=== PATIENT | male | born 1985 | race Caucasian/White ===

== ENCOUNTER → 2016-10-21 07:51 | Day surgery (SDC) | payer BC ==
[~2016-10-21 07:51] MED LIST: Acetaminophen TAB* 325 MG ONE; Buffered Lidocaine 1% SYR 3ML* 3 ML/SYR SYRINGE INTRADERM ONE; Buffered Lidocaine 1% SYR 3ML* 3 ML/SYR SYRINGE ONE; Bupivacaine 0.25% SDV* 30 ML ONE; Dexamethasone IV* 4 MG/ML 1 ML (4 MG) IV SLOW PU ONE; Dexamethasone IV* 4 MG/ML 1 ML (4 MG) ONE; Famotidine IV* 10 MG/ML 2 ML (20 mg) IV ONE; Famotidine IV* 10 MG/ML 2 ML (20 mg) ONE; KETAMINE HCL* 50 MG/ML 10 ML VIAL ONE; Ketorolac INJ* 30 MG/ML 1 ML VIAL ONE; Lidocaine 2% PF * 5 ML VIAL ONE; Midazolam* 1 MG/ML 5 ML VIAL (5 MG) ONE; Ondansetron INJ* 2 MG/ML VIAL ONE; PROCHLORPERAZINE INJ 5 MG/ML 2 ML VIAL IV PRN; Propofol* 10 MG/ML 20 ML BTL IV PUSH ONE; ceFAZolin 2 GM PREMIX (*) 2 GM/50 ML BAG IVPB ONE; fentaNYL* 50 MCG/ML 2 ML VIAL (100 MCG VIAL) IV PRN; fentaNYL* 50 MCG/ML 2 ML VIAL (100 MCG VIAL) ONE; oxyCODONE/Acetamin 5/325 MG* TAB ONE; oxyCODONE/Acetamin 5/325 MG* TAB PO PRN
[2016-10-21 13:39] VITALS: BP 158/93
--- NOTE | 2016-10-28 13:05 | OP ---
OPERATIVE REPORT: DATE OF OPERATION: 10/21/16 DATE OF : 89 SURGEON: Hever Cooper MD FUEL CELL ASSEMBLER: CHICHO Dodd ANESTHESIOLOGIST: Dr. Harmon. ANESTHESIA: General. PRE-OP DIAGNOSES: 1. Right wrist triangular fibrocartilage complex tear. 2. Right extensor carpi ulnaris subsheath injury with an unstable extensor carpi ulnaris tendon. POST-OP DIAGNOSES: 1. Right wrist triangular fibrocartilage complex tear. 2. Right extensor carpi ulnaris subsheath injury with an unstable extensor carpi ulnaris tendon. OPERATIVE PROCEDURE: 1. Diagnostic right wrist arthroscopy. 2. Partial arthroscopic synovectomy, right wrist. 3. Arthroscopic debridement of TFCC tear, right wrist. 4. Repair of right TFCC tear with Ellison and Nephew TFCC FAST-FIX. 5. Reconstruction of right extensor carpi ulnaris subsheath with extensor retinaculum turnover flap. INDICATIONS: Sepideh is a 31-year-old male. He has been having right wrist pain and snapping for quite some time. He was pushing a trailer and the hand got caught by the trailer and got pushed off and it twisted. Since then, he has had pain on the ulnar side of the wrist. There has been quite bit of snapping and clicking associated with this. It has failed to improve despite nonoperative treatment. We talked about risks and benefits, and he elected to proceed. ESTIMATED BLOOD LOSS: 5 mL. COMPLICATIONS: None. FINDINGS: Peripheral ulnar-sided TFCC tear and also attenuation and appearance of chronic injury to the ECU subsheath. DESCRIPTION OF PROCEDURE: Sepideh was seen in the preoperative holding area and the correct site and side were marked. He was brought to the operating room, where anesthesia was induced. The arm was prepped and draped in the usual fashion. A formal time-out was performed. I then went ahead and exsanguinated the extremity and inflated the tourniquet to 250 mmHg. With the arm in the traction tower and 115 mmHg of traction, I went ahead and placed the camera into 3-4 portal. The port was created in standard fashion via small kush with a 11 blade just in the skin, and then blunt dissection with blunt hemostat to enter the joint, followed by placement of one trocar with the cannula and then the camera. I went ahead and proceeded with my diagnostic arthroscopy. There was excellent visualization. The radial-sided structures including the radial styloid with scaphoid facet, volar extrinsic ligaments all looked quite nice. The membranous and dorsal portions of the scapholunate interosseous ligament were visualized and looked good. The lunate facet looked good. I then went ahead and performed an arthroscopic dorsal partial synovectomy to aid in visualization of the ulnar sided structures and also to aid in postoperative pain relief as he had abundant dorsal synovitis. When I came over to the ulnar side of the wrist, there was a tear on the dorsal ulnar aspect of the TFCC just adjacent to the ulnar styloid. I then went ahead and created 4, 5, and 6R portal. Through the 6R portal, I went ahead and probed the tear and then debrided the TFCC tear with a 2.9 Gator shaver. I was very pleased with the debridement of the tear and there was some punctate bleeding from the margin of the tear as well, so I went ahead at this point and placed the camera in the 4- 5 portal and introduced the TFCC FAST-FIX through the 3-4 portal. Once I had the FAST-FIX in place, I went ahead and removed the blue sheath and first placed the needle on the radial aspect of the tear through the TFCC. This was then taken out through the capsule in the safe zone between the ECU and the FCU. Prior to exiting the skin, I went ahead and deployed the FAST-FIX one time. I then brought the needle back and then placed it through the rim of the TFCC on ulnar side of the tear and out through the capsule. I then deployed the TFCC FAST-FIX a second time. I then went ahead and removed the needle. The suture was pulled on to snug down the repair. There was excellent apposition of the tear. I then ahead and used the knot pusher to tighten up the knot a little bit more and to clip the suture. Tail was a bit long, so I used the biter to trim the tail just a bit more. Everything looked very nice. At this point, I went ahead and withdrew the camera and all instrumentation from the arthroscopic portals. I then went ahead and laid the arm down. He had had mehul instability of the ECU preoperatively. So, I went ahead and made a Yunior-type incision over 4 to 5 cm of the distal ECU tendon. Dissection was carried down through the subcutaneous tissue to the extensor retinaculum, where full-thickness flaps were raised. I then went ahead and raised a 1- to 2-cm flap that was ulnarly based off the septum of the 5th dorsal compartment. The flap was raised over the 2nd dorsal compartment. This was then turned over and brought deep to the ECU tendon and then brought back over the ECU tendon. Four micro Mitek suture anchors were used to secure the retinacular turnover flap and place it in each of the 4 corners. This provided an excellent retinacular reconstruction. There was absolutely no tension on the ECU tendon, as I was easily able to pass the Pelham elevator between the retinacular reconstruction and the tendon. I flexed and extended the wrist and the tendon glided nicely without any kinking or snagging. I went ahead and irrigated the wound and approximated the skin there with some 3-0 Polysorb suture and all the wounds were closed with 4-0 nylon suture. Everything was infiltrated with 0.25% Marcaine. The wounds were dressed with Xeroform, 4x4's, sterile Webril, and then a sugar-tong splint was placed with the arm in neutral rotation, the wrist in neutral flexion. He was then woken back up and taken to the recovery room in stable condition. [id number]/[facility] #: [id number] YUE
== END | disposition home or self-care (01) ==
LOC: OREAST 07:51
PROVIDERS: ATTEND Orthopaedic Surgery Hand Surgery
DX: M24.831 Other specific joint derangements of right wrist, not elsewhere classified (principal); F17.200 Nicotine dependence, unspecified, uncomplicated; G47.33 Obstructive sleep apnea (adult) (pediatric); Z68.35 Body mass index [BMI] 35.0-35.9, adult
CPT/HCPCS: 88304; A9270-GY; C1713; J0690; J1100; J1885; J2250; J2405; J2704; J3010